=== PATIENT | male | born 1950 | race African-American/Black ===

== ENCOUNTER 2020-05-29 05:33 | Inpatient (IN) ==
[~2020-05-29 05:33] MED LIST: ETOMIDATE 20 MG/10 ML VIAL IV STA; ROCURONIUM 100 MG/10 ML VIAL IV STA
[2020-05-29] MEDS ORDERED: NOREPINEPHRINE 8 MG in SODIUM CHLORIDE 0.9% 242 ML IV PRN (05:45)
[2020-05-29] MEDS ORDERED: DOPamine 800 MG/250 ML PREMIX IV PRN (05:45)
[2020-05-29] MEDS ORDERED: ATROPINE 1 MG/10 ML SYRINGE IV STA ×2 (05:45→05:48)
[2020-05-29] MEDS ORDERED: SODIUM CHLORIDE 0.9% 1,000 ML IV STA (06:09)
[2020-05-29 06:20] LABS: ABG Base Excess -20.6 MMOL/L (-2.5-2.5); ABG HCO3 9.7 MMOL/L (20-26); ABG Oxygen Saturation 96.9 % (95-100); ABG TCO2 14.3 MMOL/L (23-27)
[2020-05-29 06:25] LABS: Basophils % 0.4 % (0.0-0.8); Eosinophils # 0.1 10*3/uL (0.0-0.87); Eosinophils % 1.8 % (0.00-10.9); Hemoglobin 11.8 GM/DL (14.0-18.0); Immature Granulocytes % 1.3 %; Lymphocytes # 4.6 10*3/uL (1.4-4.0); Lymphocytes % 58.6 % (21.2-54.2); Mean Corpuscular HGB Conc 31.1 GM/DL (32-36); Mean Corpuscular Volume 93.1 FL (87-102); Mean Platelet Volume 10.4 FL (9.6-12.0); Monocytes % 7.3 % (1.7-12.7); Neutrophils % 30.6 % (38.7-73.9); Red Blood Count 4.08 MC/CUMM (3.8-5.5); Red Cell Distribution Width 13.8 % (9.3-17.3); White Blood Count 7.8 T/CUMM (4-12)
[2020-05-29] MEDS ORDERED: ETOMIDATE 20 MG/10 ML VIAL IV ONE (06:29)
[2020-05-29] MEDS ORDERED: ROCURONIUM 100 MG/10 ML VIAL IV ONE (06:30)
[2020-05-29 06:31] LABS: ABG PH 6.895 (7.35-7.45)
[2020-05-29 06:32] LABS: ABG PCO2 73.1 MM HG (35-48)
[2020-05-29] MEDS ORDERED: NOREPINEPHRINE 4 MG/4 ML VIAL IV ONE ×2 (06:38→07:37)
[2020-05-29 06:40] LABS: Platelet Count 92 T/CUMM (130-400)
[2020-05-29 06:47] LABS: Amorphous Crystals,Urine Occasional /HPF (Few); Bacteria,Urine Many /HPF (Few); Bilirubin,Urine Negative (Negative); Blood, Urine Small mg/dL (Negative); Glucose,Urine (UA) Negative (Negative); Ketones,Urine Negative (Negative); Mucus,Urine Occasional /LPF (Occasional); Nitrite,Urine Negative (Negative); Protein,Urine 30 MG/DL; RBC,Urine 9 /HPF (0-4); Sperm,Urine Many /HPF (Negative); Urine Appearance CLOUDY (Clear); Urine Color Yellow (Yellow); Urine Specific Gravity 1.017 (1.001-1.035); Urine Urobilinogen < 2.0 EU/DL (0.2-1.0)
[2020-05-29 06:48] LABS: Albumin 2.9 G/DL (3.4-5.0); Bilirubin,Total 0.5 MG/DL (0.2-1.0); Calcium 11.1 MG/DL (8.5-10.1); INR 1.3; Osmolality,Calculated 301.1 MOS/KG (273-304); PT Patient Result 13.4 SECS (9.8-11.9); Partial Thromboplastin Time 40.4 SECS (23.9-33.8); Total Protein 6.6 G/DL (6.4-8.3)
[2020-05-29 06:58] LABS: Barbiturates Screen,Urine Negative (Negative); Benzodiazepines Screen,Urine Positive (Negative); Cannabinoid Screen,Urine Negative (Negative); Opiate Screen,Urine Negative (Negative); Phencyclidine Screen,Urine Negative (Negative)
[2020-05-29] MEDS ORDERED: LACTATED RINGERS 1,000 ML IV ONE (07:18)
[2020-05-29 07:34] LABS: Anisocytosis 2+; Atypical Lymphocytes Few; Band Neutrophils 3 % (0-10); Lymphocytes 60 % (20-55); Metamyelocytes 1 %; Nucleated Red Blood Cells 1 (0-5); Platelet Estimate Decreased; Poikilocytosis 1+; Segmented Neutrophils 29 % (50-85); Smudge Cells Few; Total Cells Counted 100
[2020-05-29 07:35] LABS: Burr Cells 1+; Macrocytosis 2+
[2020-05-29] MEDS ORDERED: AMIODARONE 150 MG/3 ML VIAL ONE ×2 (07:37→14:11)
[2020-05-29] MEDS ORDERED: EPINEPHrine 1 MG/10 ML SYRINGE ONE ×3 (07:37→11:57)
[2020-05-29] MEDS ORDERED: ATROPINE 1 MG/10 ML SYRINGE ONE ×2 (07:37→11:43)
[2020-05-29] MEDS ORDERED: SODIUM BICARBONATE 50 MEQ/50 ML SYRINGE IV ONE (07:37)
[2020-05-29] MEDS ORDERED: DOPamine 800 MG/250 ML PREMIX IV ONE ×2 (07:37→10:53)
[2020-05-29 07:49] VITALS: BP 124/87
[2020-05-29] MEDS ORDERED: ENOXAPARIN 30 MG/0.3 ML SYRINGE IV STA (07:58)
[2020-05-29] MEDS ORDERED: ONDANSETRON 4 MG/2 ML VIAL IV PRN (07:58)
[2020-05-29] MEDS ORDERED: ALBUTEROL 2.5 MG/3 ML NEB RESP TX PRN (07:58)
[2020-05-29] MEDS ORDERED: LACTATED RINGERS 1,000 ML IV SCH (08:00)
[2020-05-29] MEDS ORDERED: PHENYLEPHRINE DRIP 40 MG/250 ML PREMIX IV PRN (08:11)
[2020-05-29] MEDS ORDERED: MAGNESIUM SULF RIDER 1 GM in PREMIX 1 EACH IV PRN (08:17)
[2020-05-29] MEDS ORDERED: fentaNYL 100 MCG/2 ML VIAL IV PRN (08:17)
[2020-05-29] MEDS ORDERED: MIDAZOLAM 2 MG/2 ML VIAL IV PRN (08:17)
[2020-05-29] MEDS ORDERED: MIDAZOLAM 100 MG in SODIUM CHLORIDE 0.9% 80 ML IV PRN (08:19)
[2020-05-29] MEDS ORDERED: fentaNYL INJ 1,250 MCG in SODIUM CHLORIDE 0.9% 225 ML IV PRN (08:30)
[2020-05-29] MEDS ORDERED: CISATRACURIUM 200 MG in SODIUM CHLORIDE 0.9% 180 ML IV PRN (08:30)
[2020-05-29] MEDS ORDERED: MIDAZOLAM 100 MG in SODIUM CHLORIDE 0.9% 80 ML IV SCH (08:30)
[2020-05-29] MEDS ORDERED: CISATRACURIUM 10 MG/5 ML VIAL IV ONE (08:41)
[2020-05-29] MEDS ORDERED: NOREPINEPHRINE 16 MG in SODIUM CHLORIDE 0.9% 242 ML IV PRN (09:00)
[2020-05-29] MEDS ORDERED: POTASSIUM CHLORIDE RIDER 100 ML IV PRN (09:00)
[2020-05-29] MEDS ORDERED: FAMOTIDINE 20 MG/2 ML VIAL IV SCH (09:00)
[2020-05-29] MEDS ORDERED: ENOXAPARIN 30 MG/0.3 ML SYRINGE SUBCUT ONE (09:14)
[2020-05-29 09:40] LABS: ABG HCO3 14.4 MMOL/L (20-26); ABG Oxygen Saturation 98.9 % (95-100); ABG PCO2 55.2 MM HG (35-48); ABG TCO2 16.2 MMOL/L (23-27)
[2020-05-29] MEDS ORDERED: HEPARIN/NACL 0.9% 2 UNITS/ML 1,000 ML IV ONE (09:43)
[2020-05-29] MEDS ORDERED: LIDOCAINE 1% 20 ML VIAL ONE (09:43)
[2020-05-29 09:46] LABS: ABG PH 7.103 (7.35-7.45)
[2020-05-29] MEDS ORDERED: INSULIN REGULAR 100 UNIT/ML IV SCH (10:00)
[2020-05-29 10:06] LABS: Alanine Aminotransferase 1032 U/L (16-61); Alkaline Phosphatase 79 U/L (45-117); Aspartate Amino Transferase 1031 U/L (0-37); Blood Urea Nitrogen 54 MG/DL (7-18); Calcium 9.1 MG/DL (8.5-10.1); Estimated Glom Filtration Rate 35 ML/MIN; Glucose 200 MG/DL (74-106); Osmolality,Calculated 295.7 MOS/KG (273-304); Total Protein 6.8 G/DL (6.4-8.3)
[2020-05-29 10:13] LABS: INR 1.4; PT Patient Result 14.6 SECS (9.8-11.9); Partial Thromboplastin Time 34.8 SECS (23.9-33.8)
[2020-05-29 10:24] LABS: CKMB % 3.2 %
[2020-05-29 10:55] LABS: Troponin I 3.8 NG/ML (0.00-0.045)
[2020-05-29 11:08] LABS: Basophils % 0.2 % (0.0-0.8); Eosinophils # 0.1 10*3/uL (0.0-0.87); Eosinophils % 0.4 % (0.00-10.9); Hemoglobin 11.3 GM/DL (14.0-18.0); Immature Granulocytes % 1.4 %; Immature Granulocytes Absolute 0.18 #; Lymphocytes # 2.3 10*3/uL (1.4-4.0); Lymphocytes % 17.6 % (21.2-54.2); Mean Corpuscular HGB Conc 32.3 GM/DL (32-36); Mean Corpuscular Volume 89.7 FL (87-102); Mean Platelet Volume 10.5 FL (9.6-12.0); Monocytes % 4.3 % (1.7-12.7); Neutrophils % 76.1 % (38.7-73.9); Platelet Count 120 T/CUMM (130-400); Platelet Estimate Adequate; Red Cell Distribution Width 13.9 % (9.3-17.3); White Blood Count 12.9 T/CUMM (4-12)
[2020-05-29 11:09] LABS: Anisocytosis 2+; Macrocytosis 1+; Poikilocytosis Slight
[2020-05-29 11:10] LABS: Burr Cells 1+
[2020-05-29] MEDS ORDERED: HEPARIN/NACL 0.9% 2 UNITS/ML 500 ML IV ONE (11:24)
[2020-05-29 11:37] LABS: ABG Base Excess -10.5 MMOL/L (-2.5-2.5); ABG HCO3 15.9 MMOL/L (20-26); ABG Oxygen Saturation 81.5 % (95-100); ABG PCO2 44.9 MM HG (35-48); ABG PH 7.198 (7.35-7.45); ABG TCO2 16.2 MMOL/L (23-27)
[2020-05-29] MEDS ORDERED: EPINEPHrine 1 MG/ML VIAL ONE (11:46)
== END 2020-05-29 12:06 | disposition expired | DRG 208 ==
LOC: N.ED 05:33 → N.EDINP 07:31 → N.CC 08:01
PROVIDERS: ADMIT Internal Medicine; ATTEND Internal Medicine